=== PATIENT | female | born 1975 | race Caucasian/White ===

== ENCOUNTER 2017-08-04 12:40 | Emergency (ER) | payer BC, OTHER ==
[~2017-08-04] VITALS: Ht 165.1 cm; Wt 90.5 kg
[2017-08-04 12:53] VITALS: BP 118/78; PULSE 97; RESP 18; TEMP 97.7; O2SAT 98
--- NOTE | 2017-08-04 13:22 | PD ---
HPI Chief Complaint: Chest Pain Time Seen by Provider: 13:07 Travel History International Travel<30 days: No Contact w/Intl Traveler<30days: No Traveled to known affect area: No History of Present Illness HPI 42-year-old female complains of chest pain. Patient states that the pain is sharp pain and pressure pain localized to left chest. Patient states that she was lifting heavy boxes when the pain started. Patient states that the pain is worse with deep breathing and movement of left upper extremity. Patient denies any coughing congestion fever chills. Patient states that she has shortness of breath with chest pain. Patient denies history of CAD. Patient denies history hypertension, diabetes, hyperlipidemia. Patient is a non-smoker. Patient denies family history heart disease. On a scale of 1-10 the pain is a 9. PFSH Past Medical History Cancer: No Diabetes: No Glaucoma: No Hepatitis: No Hiatal Hernia: No Hypertension: No Thyroid Disease: No Influenza Vaccination: No ?: Not LMP: 1 MONTH Past Surgical History Abdominal Surgery: No Cardiac Surgery: No Section: Yes Ear Surgery: No Endocrine Surgery: No Eye Surgery: No Genitourinary Surgery: No Gynecologic Surgery: Yes ( X1) Oral Surgery: No Pacemaker: No Thoracic Surgery: No Other Surgery: Yes Social History Alcohol Use: No Tobacco Use: No Substance Use: No Allergies-Medications (Allergen,Severity, Reaction): Coded Allergies: Sulfa (Sulfonamide Antibiotics) (Unverified Allergy, Severe, 08/04/17) Reported Meds & Prescriptions Reported Meds & Active Scripts Active No Active Prescriptions or Reported Medications Review of Systems General / Constitutional: No: Fever Eyes: No: Visual changes HENT: No: Headaches Cardiovascular: Positive: Chest Pain or Discomfort Respiratory: No: Shortness of Breath Gastrointestinal: No: Abdominal Pain Genitourinary: No: Dysuria Musculoskeletal: No: Pain Skin: No Rash Neurologic: No: Weakness Psychiatric: No: Depression Endocrine: No: Polydipsia Hematologic/Lymphatic: No: Easy Bruising Physical Exam Narrative GENERAL: Well-nourished, well-developed patient. SKIN: Focused skin assessment warm/dry. HEAD: Normocephalic. EYES: No scleral icterus. No injection or drainage. NECK: Supple, trachea midline. No JVD or lymphadenopathy. CARDIOVASCULAR: Regular rate and rhythm without murmurs, gallops, or rubs. RESPIRATORY: Breath sounds equal bilaterally. No accessory muscle use. GASTROINTESTINAL: Abdomen soft, non-tender, nondistended. MUSCULOSKELETAL: Patient has reproducible tenderness on palpation left anterior chest wall area. No crepitus no deformity noted. Breath sounds equal bilaterally. BACK: Nontender without obvious deformity. No CVA tenderness. Neurologic exam normal. Data Data Last Documented VS Vital Signs Date Time Temp Pulse Resp B/P (MAP) Pulse Ox O2 Delivery O2 Flow Rate FiO2 08/04/17 13:33 81 18 131/83 (99) 97 Room Air 08/04/17 12:53 97.7 Orders Orders Electrocardiogram (08/04/17 13:16) Complete Blood Count With Diff (08/04/17 13:16) Comprehensive Metabolic Panel (08/04/17 13:16) Creatine Kinase (Cpk) (08/04/17 13:16) Troponin I (08/04/17 13:16) Chest, Single Ap (08/04/17 13:16) Iv Access Insert/Monitor (08/04/17 13:16) Ecg Monitoring (08/04/17 13:16) Oximetry (08/04/17 13:16) Ketorolac Inj (Toradol Inj) (08/04/17 13:30) Labs Laboratory Tests Test 08/04/17 13:25 White Blood Count 10.7 TH/MM3 Red Blood Count 5.22 MIL/MM3 Hemoglobin 14.1 GM/DL Hematocrit 42.0 % Mean Corpuscular Volume 80.5 FL Mean Corpuscular Hemoglobin 27.0 PG Mean Corpuscular Hemoglobin Concent 33.6 % Red Cell Distribution Width 12.6 % Platelet Count 276 TH/MM3 Mean Platelet Volume 9.0 FL Neutrophils (%) (Auto) 60.5 % Lymphocytes (%) (Auto) 29.8 % Monocytes (%) (Auto) 4.8 % Eosinophils (%) (Auto) 4.5 % Basophils (%) (Auto) 0.4 % Neutrophils # (Auto) 6.5 TH/MM3 Lymphocytes # (Auto) 3.2 TH/MM3 Monocytes # (Auto) 0.5 TH/MM3 Eosinophils # (Auto) 0.5 TH/MM3 Basophils # (Auto) 0.0 TH/MM3 CBC Comment DIFF FINAL Differential Comment Blood Urea Nitrogen 13 MG/DL Creatinine 0.92 MG/DL Random Glucose 95 MG/DL Total Protein 7.0 GM/DL Albumin 3.2 GM/DL Calcium Level 8.3 MG/DL Alkaline Phosphatase 87 U/L Aspartate Amino Transf (AST/SGOT) 11 U/L Alanine Aminotransferase (ALT/SGPT) 21 U/L Total Bilirubin 0.4 MG/DL Sodium Level 137 MEQ/L Potassium Level 3.5 MEQ/L Chloride Level 105 MEQ/L Carbon Dioxide Level 27.8 MEQ/L Anion Gap 4 MEQ/L Estimat Glomerular Filtration Rate 67 ML/MIN Total Creatine Kinase 40 U/L Troponin I LESS THAN 0.02 NG/ML MDM Medical Decision Making Medical Screen Exam Complete: Yes Emergency Medical Condition: Yes Interpretation(s) EKG shows sinus rhythm nonspecific ST-T wave change. Last Impressions Chest X-Ray 08/04/17 1316 Signed Impressions: Service Date/Time: Friday, August 04, 2017 13:39 - CONCLUSION: No acute disease. Destin Guzman MD 1435 PM. CBC within normal limits. CMP within normal limits. Cardiac enzymes are normal. Differential Diagnosis Differential diagnosis including musculoskeletal, angina, IL, PE, pneumothorax. Narrative Course 42-year-old female with sudden onset of left anterior chest wall pain after lifting boxes. Toradol 30 mg IV. Diagnosis Primary Impression: Atypical chest pain Patient Instructions: General Instructions Additional Instructions: Take medication as needed for pain. Follow-up with personal physician. Return if increased chest pain shortness of breath. Med/Other Pt SpecificInfo: Prescription(s) given Scripts Tramadol (Ultram) 50 Mg Tab 50 MG PO Q6H Y for PAIN, #12 TAB 0 Refills Prov: Wilfrid Jiang MD 08/04/17 Methocarbamol (Robaxin) 750 Mg Tab 750 MG PO QID for Muscle Spasm, #40 TAB 0 Refills Prov: Wilfrid Jiang MD 08/04/17 Meloxicam (Mobic) 15 Mg Tab 15 MG PO DAILY for Pain, #20 TAB 0 Refills Prov: Wilfrid Jiang MD 08/04/17 Disposition: 01 DISCHARGE HOME Condition: Stable Wilfrid Jiang MD Aug 04, 2017 13:22
[2017-08-04 13:26] VITALS: O2SAT 98
[2017-08-04] MEDS ORDERED: KETOROLAC TROMETHAMINE 30 MG/ML (IVP) VIAL IV PUSH ONE (13:30)
[2017-08-04 13:33] VITALS: BP 131/83; PULSE 81; RESP 18; O2SAT 97
[2017-08-04 13:45] LABS: AUTOMATED NEUTROPHIL # 6.5 TH/MM3 (1.8-7.7); BASOPHIL % 0.4 % (0.0-2.0); EOSINOPHIL # 0.5 TH/MM3 (0-0.4); EOSINOPHIL % 4.5 % (0.0-4.0); HEMOGLOBIN 14.1 GM/DL (11.6-15.3); LYMPH % 29.8 % (9.0-44.0); LYMPHOCYTE # 3.2 TH/MM3 (1.0-4.8); MEAN CELL VOLUME 80.5 FL (80.0-100.0); MEAN CORPUSCULAR HGB CONC 33.6 % (32.0-36.0); MONO % 4.8 % (0.0-8.0); MONOCYTE # 0.5 TH/MM3 (0-0.9); NEUT % 60.5 % (16.0-70.0); PLATELET COUNT 276 TH/MM3 (150-450); RED BLOOD COUNT 5.22 MIL/MM3 (4.00-5.30); RED CELL DISTRIBUTION WIDTH 12.6 % (11.6-17.2); WHITE BLOOD COUNT 10.7 TH/MM3 (4.0-11.0)
[2017-08-04 13:56] LABS: CHLORIDE 105 MEQ/L (98-107); SODIUM (NA) 137 MEQ/L (136-145)
[2017-08-04 13:59] LABS: ALBUMIN 3.2 GM/DL (3.4-5.0); BICARBONATE 27.8 MEQ/L (21.0-32.0); BLOOD UREA NITROGEN 13 MG/DL (7-18); CALCIUM 8.3 MG/DL (8.5-10.1); GLUCOSE,RANDOM 95 MG/DL (74-106)
[2017-08-04 14:02] LABS: ALT (GPT) 21 U/L (10-53); AST (GOT) 11 U/L (15-37); CREATININE 0.92 MG/DL (0.50-1.00); GLOMERULAR FILTRATION RATE 67 ML/MIN (>89)
[2017-08-04 14:04] LABS: TOTAL BILIRUBIN ADULT 0.4 MG/DL (0.2-1.0)
[2017-08-04 14:05] LABS: ALKALINE PHOSPHATASE 87 U/L (45-117)
[2017-08-04 14:07] LABS: TROPONIN I LESS THAN 0.02 NG/ML (0.02-0.05)
--- NOTE | 2017-08-04 14:18 | RADRPT ---
EXAM DATE/TIME: 08/04/2017 13:39 [facility] COMPARISON: No previous studies available for comparison. INDICATIONS : Shortness of breath & chest pain. Started with sharp pain now tightness radiating to left chest. MEDICAL HISTORY : None. SURGICAL HISTORY : section. ENCOUNTER: Initial ACUITY: 2 days PAIN SCORE: 9/10 LOCATION: Left chest FINDINGS: A single view of the chest demonstrates the lungs to be symmetrically aerated without evidence of mas s, infiltrate or effusion. The cardiomediastinal contours are unremarkable. Osseous structures are intact. CONCLUSION: No acute disease. Destin Guzman MD on August 04, 2017 at 14:15 Board Certified Radiologist. This report was verified electronically.
[2017-08-04 14:35] VITALS: BP 120/83; PULSE 81; RESP 20; O2SAT 95
[2017-08-04] MEDS ORDERED: ROBA750T PO (14:41)
[2017-08-04] MEDS ORDERED: MOBI15TA PO (14:41)
[2017-08-04] MEDS ORDERED: TRAM50 PO (14:41)
--- NOTE | 2017-08-04 23:39 | EKG ---
Date Performed: 08/04/2017 Time Performed: 12:46:52 PTAGE: 42 years EKG: Sinus rhythm MINIMAL ST DEPRESSION BORDERLINE ECG INTERPRETATION BASED ON A DEFAULT AGE OF 40 YEARS NO PREVIOUS TRACING DOCTOR: Lan Pereira Interpretating Date/Time 08/04/2017 23:38:20
== END 2017-08-04 15:02 | disposition home or self-care (01) ==
LOC: PHED 12:40
DX: R07.89 Other chest pain (principal); R06.02 Shortness of breath; R94.31 Abnormal electrocardiogram [ECG] [EKG]
CPT/HCPCS: 71045; 80053; 82550; 84484; 85025; 93005; 96374; 99285; J1885